=== PATIENT | female | born 1985 ===

== ENCOUNTER 2017-04-27 10:21 | Emergency (ER) | payer SELFPAY ==
[~2017-04-27] VITALS: Ht 157.5 cm; Wt 78.0 kg
[2017-04-27 10:23] VITALS: Ht 157.5 cm; Wt 78.0 kg
[2017-04-27] MEDS ORDERED: KETOROLAC 30 MG INJ IV STA (11:49)
[2017-04-27] MEDS ORDERED: ONDANSETRON 4 MG INJ IV STA (11:49)
[2017-04-27] MEDS ORDERED: SOD CHLORIDE 0.9% 1,000 ML IV STA (11:49)
[2017-04-27 12:32] LABS: BASOPHILS % 0.2 % (0.0-2.0); EOSINOPHILS # 0.1 10^3/ul (0.0-0.5); EOSINOPHILS % 0.7 % (0.0-7.0); HEMOGLOBIN 12.9 g/dl (12.0-16.0); LYMPHOCYTES # 1.8 10^3/ul (0.8-2.9); LYMPHOCYTES % 15.7 % (15.0-51.0); MEAN CORPUSCULAR HEMOGLOBIN 28.4 pg (29.0-33.0); MEAN CORPUSCULAR HGB CONC 33.1 g/dl (32.0-37.0); MEAN CORPUSCULAR VOLUME 85.7 fl (82.0-101.0); MEAN PLATELET VOLUME 10.2 fl (7.4-10.4); MONOCYTE # 0.6 10^3/ul (0.3-0.9); MONOCYTES % 5.1 % (0.0-11.0); NEUTROPHIL # 8.8 10^3/ul (1.6-7.5); NEUTROPHILS % 77.9 % (39.0-77.0); PLATELET COUNT 291 10^3/UL (140-415); RED BLOOD COUNT 4.55 10^6/ul (4.20-5.40); RED CELL DISTRIBUTION WIDTH 12.6 % (11.5-14.5); WHITE BLOOD COUNT 11.3 10^3/ul (4.8-10.8)
[2017-04-27 12:45] LABS: ADD UMIC YES; UR AMORPHOUS CRYSTAL FEW /HPF (NONE SEEN); UR ASCORBIC ACID NEGATIVE (NEGATIVE); UR BACTERIA FEW /HPF (NONE SEEN); UR BILIRUBIN (Dip) NEGATIVE (NEGATIVE); UR BLOOD (Dip) 2+ mg/dL (NEGATIVE); UR CLARITY CLEAR (CLEAR); UR COLOR AMBER (YELLOW); UR GLUCOSE (Dip) NEGATIVE (NEGATIVE); UR KETONES (Dip) NEGATIVE (NEGATIVE); UR LEUKOCYTE ESTERASE (Dip) 3+ Leu/ul (NEGATIVE); UR NITRITE (Dip) POSITIVE (NEGATIVE); UR RBC 3 /HPF (0-5); UR SPECIFIC GRAVITY (Dip) 1.009 (1.003-1.030); UR SQUAMOUS EPITHELIAL CELL FEW /HPF (FEW); UR TOTAL PROTEIN (Dip) 2+ mg/dl (NEGATIVE); UR UROBILINOGEN (Dip) NEGATIVE (NEGATIVE); UR WBC CLUMPS FEW /HPF (NONE SEEN)
[2017-04-27 12:50] LABS: ALBUMIN 4.2 g/dl (3.3-4.9); ALBUMIN/GLOBULIN RATIO 1.16; BILIRUBIN,INDIRECT 0.1 mg/dl (0-1.1); BILIRUBIN,TOTAL 0.1 mg/dl (0.2-1.3); CALCIUM 9.6 mg/dl (8.4-10.2); CREATININE 0.53 mg/dl (0.44-1.00); POTASSIUM 3.7 mmol/L (3.5-5.1); TOTAL PROTEIN 7.8 g/dl (6.1-8.1)
--- NOTE | 2017-04-27 13:05 | RADRPT ---
PROCEDURE: CT Abdomen and Pelvis without contrast. CLINICAL INDICATION: Abdominal pain TECHNIQUE: CT of the abdomen and pelvis was performed on a multi-detector scanner without IV contr ast. Coronal and sagittal images were reformatted from the axial data set. One or more of the foll owing dose reduction techniques were used: automated exposure control, adjustment of the mA and/or k V according to patient size, use of iterative reconstruction technique. CTDI = 8.03 mGy. DLP = 453. 32 mGy-cm. COMPARISON: None. FINDINGS: The lung bases are clear. The heart size is normal, without pericardial effusion. Liver, gallbladd er, biliary tree, pancreas, spleen, adrenal glands and left kidney are unremarkable. There is mild r ight hydroureteronephrosis and periureteral edema, without evidence of urinary calculus. The stomach is partially collapsed, but appears grossly unremarkable. The aorta is of normal caliber. There is no retroperitoneal lymphadenopathy. The alexander hepatis reg ion is clear. No bowel obstruction, free intraperitoneal air or abscess is identified. The appendix is well visual ized and normal. There is no diverticulosis, diverticulitis or colitis. Urinary bladder wall appears circumferentially thickened, with mild adjacent inflammatory stranding, concerning for cystitis. Ut erus and adnexa are grossly unremarkable. No pelvic mass, free fluid or lymphadenopathy is identifie d. The surrounding osseous structures are unremarkable. No osteolytic or osteoblastic lesion is detect ed. IMPRESSION: 1. Findings suggestive of cystitis, as described above. 2. There is mild right hydroureteronephrosis and periureteral edema, without evidence of urinary ca lculus - considerations include right ureteritis/pyelonephritis and possibly a recently passed right ureteral stone. 3. No mass or lymphadenopathy is identified. .Guillermo Banuelos MD, Date Time Electronically viewed and signed by .Guillermo Banuelos MD, on 04/27/2017 13:04 .R/
[2017-04-27] MEDS ORDERED: CEPH-443 PO (13:34)
[2017-04-27] MEDS ORDERED: CEFTRIAXONE 1 GM INJ IVPB ONE (14:00)
--- NOTE | 2017-04-27 14:29 | ERD ---
ER Documentation Chief Complaint Date/Time DATE: 04/27/17 TIME: 14:23 Chief Complaint dysuria since HPI D Patient is a 31-year-old female here with friend who presents to the ED with dysuria, back pain and abdominal pain 3 days. She states that she was diagnosed with a urinary tract infection 4 days ago. She states that she went to a clinic and was given an antibiotic, unsure of the name of the antibiotic but she has been taking the antibiotic for 2 days. Denies fever or chills. States that the pain is in the right side of her abdomen and her back. Pain with urination and urgency. Denies nausea, vomiting or diarrhea. Has a normal appetite. Denies headache or dizziness. No other complaints. ROS All systems reviewed and are negative except as per history of present illness. Medications Home Meds Active Scripts Cephalexin* (Keflex*) 500 Mg Capsule, 500 MG PO TID for 14 Days, CAP Prov:MILDRED ARRIAZA PA-C 04/27/17 Allergies Allergies: Coded Allergies: No Known Allergy (Unverified , 04/27/17) PMhx/Soc Medical and Surgical Hx: pt denies Medical Hx, pt denies Surgical Hx History of Surgery: No Anesthesia Reaction: No Hx Neurological Disorder: No Hx Respiratory Disorders: No Hx Cardiac Disorders: No Hx Psychiatric Problems: No Hx Miscellaneous Medical Probl: No Hx Alcohol Use: No Hx Substance Use: No Hx Tobacco Use: No Smoking Status: Never smoker FmHx Family History: No coronary disease, No diabetes, No other Physical Exam Vitals Vital Signs Date Time Temp Pulse Resp B/P Pulse Ox O2 Delivery O2 Flow Rate FiO2 04/27/17 10:23 98.1 89 18 130/89 99 Physical Exam GENERAL: Well-developed, well-nourished female. Appears in no acute distress. HEAD: Normocephalic, atraumatic. EYES: Pupils are equally reactive bilaterally. EOMs grossly intact. No conjunctival erythema. ENT: Moist mucous membranes. No uvula deviation. No kissing tonsils. No exudates. NECK: Supple. No lymphadenopathy or thyromegaly. No meningismus. negative kernig. negative brudinski. LUNG: Clear to auscultation bilaterally. No rhonchi, wheezing, rales or coarse breath sounds. HEART: Regular rate and rhythm. No murmurs, rubs or gallops. ABDOMEN: No scars, ecchymosis or rashes noted. Soft, and nondistended. Positive bowel sounds in all four quadrants. No rebound tenderness, no guarding. (-) McBurneys point tenderness. tenderness on right CVA. tender right upper quadrant and right mid qudrant. suprapubic tenderness. BACK: No midline tenderness. Extremities: Equal pulses bilaterally. No peripheral clubbing, cyanosis or edema. No unilateral leg swelling. NEUROLOGIC: Alert and oriented. Moving all four extremities. 5/5 strength in all extremities. Normal speech. Steady gait. SKIN: Normal color. Warm and dry. No rashes or lesions. Capillary refill < 2 seconds Result Diagram: 04/27/17 1215 04/27/17 1215 Results 24 hrs Laboratory Tests Test 04/27/17 12:15 White Blood Count 11.310^3/ul Red Blood Count 4.5510^6/ul Hemoglobin 12.9g/dl Hematocrit 39.0% Mean Corpuscular Volume 85.7fl Mean Corpuscular Hemoglobin 28.4pg Mean Corpuscular Hemoglobin Concent 33.1g/dl Red Cell Distribution Width 12.6% Platelet Count 51982^3/UL Mean Platelet Volume 10.2fl Neutrophils % 77.9% Lymphocytes % 15.7% Monocytes % 5.1% Eosinophils % 0.7% Basophils % 0.2% Nucleated Red Blood Cells % 0.0/100WBC Neutrophils # 8.810^3/ul Lymphocytes # 1.810^3/ul Monocytes # 0.610^3/ul Eosinophils # 0.110^3/ul Basophils # 0.010^3/ul Nucleated Red Blood Cells # 0.010^3/ul Urine Color TARYN Urine Clarity CLEAR Urine pH 7.0 Urine Specific [place] 1.009 Urine Ketones NEGATIVEmg/dL Urine Nitrite POSITIVEmg/dL Urine Bilirubin NEGATIVEmg/dL Urine Urobilinogen NEGATIVEmg/dL Urine Leukocyte Esterase 3+Gregorio/ul Urine Microscopic RBC 3/HPF Urine Microscopic WBC 15/HPF Urine Squamous Epithelial Cells FEW/HPF Urine Amorphous Crystals FEW/HPF Urine Bacteria FEW/HPF Urine Hemoglobin 2+mg/dL Urine Glucose NEGATIVEmg/dL Urine Total Protein 2+mg/dl Sodium Level 142mmol/L Potassium Level 3.7mmol/L Chloride Level 105mmol/L Carbon Dioxide Level 27mmol/L Anion Gap 14 Blood Urea Nitrogen 9mg/dl Creatinine 0.53mg/dl Glucose Level 115mg/dl Calcium Level 9.6mg/dl Total Bilirubin 0.1mg/dl Direct Bilirubin 0.00mg/dl Indirect Bilirubin 0.1mg/dl Aspartate Amino Transf (AST/SGOT) 20IU/L Alanine Aminotransferase (ALT/SGPT) 30IU/L Alkaline Phosphatase 84IU/L Total Protein 7.8g/dl Albumin 4.2g/dl Globulin 3.60g/dl Albumin/Globulin Ratio 1.16 Lipase 98U/L Current Medications Medications (Trade) Dose Ordered Sig/Arlene Route PRN Reason Start Time Stop Time Status Last Admin Dose Admin Sodium Chloride (NS) 1,000 ml @ 1,000 mls/hr Q1H STAT IV 04/27/17 11:49 04/27/17 12:48 DC 04/27/17 12:32 Ondansetron HCl (Zofran Inj) 4 mg ONCE STAT IV 04/27/17 11:49 04/27/17 11:52 DC 04/27/17 12:31 Ketorolac Tromethamine (Toradol) 30 mg ONCE STAT IV 04/27/17 11:49 04/27/17 11:52 DC 04/27/17 12:32 Ceftriaxone Sodium 1 gm 1 gm ONCE ONCE IVPB 04/27/17 14:00 04/27/17 14:12 DC Ceftriaxone Sodium (Rocephin) 50 ml @ 100 mls/hr ONCE ONCE IVPB 04/27/17 14:30 04/27/17 14:59 Procedures/MDM ER COURSE: I kept the patient and/or family informed of laboratory and diagnostic imaging results throughout the emergency room course. MEDICATIONS: fluids, toradol. tolerated well and had improvement in sx. LAB INTERPRETATION: CBC showed no evidence of systemic infection or severe anemia. CMP showed no evidence of electrolyte abnormalities, severe acidosis, alkalosis, renal failure , or liver disease. Lipase showed no evidence of acute pancreatitis. UA showed positive nitrites, leukocytes.. Urine test was negative. MEDICAL DECISION MAKING: This is a 31-year-old female who presents with back pain, dysuria x 4 days. Vital signs were reviewed. Patient is afebrile. Patient is not hypoxic. Patient is not toxic or ill-appearing. Patient tolerating fluids here in the ED. CT scan is read by radiologist shows pyelonephritis. Patient does have urinary tract infection. Rocephin given in the ED. Tolerated well with no adverse reaction. Patient had improvement in symptoms after Toradol. Patient will be treated outpatient. At this point patient does not need to be admitted. Patient does not have fever and is not toxic or ill-appearing and is able to keep fluids down here in the ED. Creatinine within normal limits. Low suspicion for ovarian torsion, PID, tuboovarian abscess, ectopic , bowel obstruction, , appendicitis, cervicitis, septic , molar , HELLP syndrome, preeclampsia, eclampsia. DISCHARGE: At this time, patient is stable for discharge and outpatient management with no new complaints during the ER course. Patient was sent home with keflex and to follow up with primary care provider. copy of imaging and laboratory studies given to patient.. Patient will be discharged home with instructions to recheck for new or worsening symptoms such as fever, nausea, weakness, LOC and to follow up with primary care in the next 1-2 days. Patient was advised to return to the ER for any new or worsening symptoms. Plan was discussed and patient and/ or family understands and agrees. Home instructions were given. Departure Diagnosis: Primary Impression: Pyelonephritis Condition: Stable Patient Instructions: Pyelonephritis, Female (Adult) Additional Instructions: Call your primary care doctor TOMORROW for an appointment during the next 1-2 days.See the doctor sooner or return here if your condition worsens before your appointment time. MILDRED ARRIAZA PA-C Apr 27, 2017 14:29
[2017-04-27] MEDS ORDERED: CEFTRIAXONE 1 GM/50 ML (PMX) 50 ML IVPB ONE (14:30)
[2017-04-27 15:23] VITALS: BP 139/86; PULSE 76; RESP 20; TEMP 98.3
== END 2017-04-27 15:23 | disposition home or self-care (01) ==
LOC: FTE 10:21
DX: N12 Tubulo-interstitial nephritis, not specified as acute or chronic (principal)
CPT/HCPCS: 36415; 74176; 80053; 81001; 83690; 85025; 96374; 96375; 99285; J0696; J1885; J2405; J7030